=== PATIENT | male | born 1960 | race African-American/Black ===

== ENCOUNTER 2018-08-16 06:58 | Emergency (ER) | payer BC, OTHER ==
[~2018-08-16] VITALS: Ht 182.9 cm; Wt 82.0 kg
[2018-08-16] MEDS ORDERED: ONDANSETRON HCL 4MG/2ML INJ IV STA (08:25)
[2018-08-16] MEDS ORDERED: SODIUM CHLORIDE 0.9% 1,000 ML IV ONE (08:25)
[2018-08-16] MEDS ORDERED: MORPHINE SULFATE 4 MG/ML CPJ (NOT FOR IM USE) IV STA (08:25)
[2018-08-16 09:53] LABS: HEMATOCRIT. 39.9 % (42.0-52.0); MEAN CORPUSCULAR HEMOGLOBIN 27.4 pg (28.0-32.0); MEAN CORPUSCULAR VOLUME 83.8 fL (80.0-94.0); PLATELET 186 x1000/uL (130-400); RED BLOOD CELL COUNT 4.76 mill/uL (4.7-6.1)
[2018-08-16 10:32] LABS: CHLORIDE 103 mEq/L (98-107)
[2018-08-16 10:49] LABS: PLATELET ESTIMATE NORMAL
[2018-08-16] MEDS ORDERED: LEVOFLOXACIN 500MG PREMIX 100 ML IV ONE (13:15)
[2018-08-16 13:23] LABS: PARTIAL THROMBOPLASTIN TIME 29.5 sec (23.4-31.0); PROTHROMBIN TIME 10.4 sec (9.1-11.1)
[2018-08-16 14:21] LABS: CLARITY URINE CLEAR (CLEAR); COLOR URINE YELLOW (YELLOW); KETONES URINE NEGATIVE (NEGATIVE); LEUKOCYTE ESTERASE URINE NEGATIVE (NEGATIVE); NITRITE URINE NEGATIVE (NEGATIVE); OCCULT BLOOD URINE 3+ (NEGATIVE); PH URINE 6.5 (4.5-8.0); PROTEIN URINE NEGATIVE (NEGATIVE); SPECIFIC GRAVITY URINE 1.009 (1.005-1.030); UROBILINOGEN URINE 0.2 E.U./dL (0.2-1.0)
[2018-08-16 16:19] VITALS: BP 131/66
== END 2018-08-16 16:24 | disposition home or self-care (01) ==
LOC: ER 08:59 → CANRESERV 14:11 → ENRESERV 14:11 → ER 16:24 → CANBEDREQ 17:07
DX: N12 Tubulo-interstitial nephritis, not specified as acute or chronic (principal); R33.9 Retention of urine, unspecified; N13.30 Unspecified hydronephrosis; N40.0 Benign prostatic hyperplasia without lower urinary tract symptoms; R19.7 Diarrhea, unspecified; F12.10 Cannabis abuse, uncomplicated; Z88.0 Allergy status to penicillin
CPT/HCPCS: 36415; 74177; 80053; 81003; 85025; 85610; 85730; 87086; 96361; 96365; 96366; 96375; 99285; J1956; J2270; J2405; J7030; Z7610; A4315

== ENCOUNTER 2018-08-19 19:31 | Emergency (ER) | payer BC, OTHER ==
[~2018-08-19] VITALS: Ht 182.9 cm; Wt 83.0 kg
[2018-08-19 23:48] VITALS: BP 124/76
== END 2018-08-19 23:52 | disposition home or self-care (01) ==
LOC: ER 19:31
DX: T83.098A Other mechanical complication of other urinary catheter, initial encounter (principal); N40.0 Benign prostatic hyperplasia without lower urinary tract symptoms; Z88.0 Allergy status to penicillin
CPT/HCPCS: 99284